=== PATIENT | female | born 2000 | race Caucasian/White ===

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

== ENCOUNTER 2020-06-08 05:28 | Day surgery (SDC) | payer OTHER ==
[2020-06-06 10:12] LABS: HEMATOCRIT 39.3 % (36.0-48.0); HEMOGLOBIN 12.8 g/dL (12-16); MCH 28.5 pg (26.0-34.0); MCHC 32.6 g/dL (31.0-37.0); MCV 87.5 fL (80.0-100.0); MEAN PLATELET VOLUME 9.7 fL (7.4-10.4); RBC 4.49 10x6/uL (4.00-5.40); RDW 12.8 % (11.5-14.5); WBC 3.9 10x3/uL (4.8-10.8)
[~2020-06-08] VITALS: Ht 165.1 cm; Wt 79.4 kg
--- NOTE | ~2020-06-08 | OP ---
PATIENT NAME: ANTONIETA SAMAYOA MEDICAL RECORD: [id number] :98 LOCATION:D.OPS ADMISSION DATE: SURGEON: ELROY MAE DPM DATE OF OPERATION: 06/08/2020 PREOPERATIVE DIAGNOSES: 1. Painful hardware, right foot. 2. HAV, right foot. 3. First met cuneiform joint instability, right foot. POSTOPERATIVE DIAGNOSES: 1. Painful hardware, right foot. 2. HAV, right foot. 3. First met cuneiform joint instability, right foot. PROCEDURES: 1. Right foot painful plate removal times 2. 2. Right Palacios bunionectomy. 2. Right first met cuneiform joint fusion. ANESTHESIA: Preoperative popliteal block per the anesthesia department as well as intraoperative general anesthesia as well as infiltration of 12 mL of Marcaine with epinephrine on the medial anterior right ankle to cover the saphenous nerve. HEMOSTASIS: Right thigh tourniquet at 300 mmHg. PREOPERATIVE DETAILS: The patient was taken to the OR and placed on the operating table in a supine position. This was followed by induction of general anesthesia, followed by infiltration of local anesthetic. The right extremity was then prepped and draped in the usual aseptic technique followed by exsanguination and inflation of tourniquet. PROCEDURE #1 and 2: Removal of painful retained hardware, right foot. A 15 blade was used to create an incision on the dorsal aspect of the right foot overlying the previous scar from the dorsal aspect of the medial cuneiform distally to the base of proximal phalanx of the hallux. The incision was deepened down through subcutaneous tissue. All vital structures were retracted in the wound. A periosteal incision was made along the dorsal aspect of the first met cuneiform joint distally to the base of the proximal phalanx of the hallux. An inverted L capsulotomy was performed at the first MPJ and the medial capsular flap was retracted and the head of first metatarsal was delivered. A rongeur was used to remove the medial eminence. Attention was directed to the first interspace where a lateral release was performed. Good clinical reduction of lateral contracture was verified. That concludes the Palacios bunionectomy and the plate removal was continued proximal, one plate was on the medial side of the first metatarsal and the other on the dorsal aspect of the medial cuneiform. The soft tissue was freed from both plates, screwdriver was used to remove the screws and the plates. PROCEDURE #3: First met cuneiform joint fusion, right foot. The first met cuneiform joint was delivered. A sagittal saw was used to resect the joint. Temporary fixation was placed. Excellent alignment was noted and a 5-hole plate with one screw crossing through the plate, across the fusion site for excellent rigid internal fixation was applied. C-arm was used to verify good alignment as OPERATIVE REPORT [id number] ANTONIETA SAMAYOA well as placement of the hardware. The wound was flushed. The periosteum was closed with 2-0 Vicryl as well as the deep tissue. The first MPJ capsule was also repaired with 2-0 Vicryl. The subcutaneous tissue was reapproximated with 4-0 Rapide and the skin was closed with 4-0 Rapide in a subcuticular technique followed by Dermabond. Adaptic, 4 x 4, and Conform were used to dress the wound followed by application of modified Staples compression dressing. Tourniquet was deflated. POSTOPERATIVE DETAILS: The patient tolerated the procedure well and left the OR with vital signs stable and vascular status at preoperative levels. The patient was transported to recovery per anesthesia in stable condition. TRANSINT:[id number] Voice Confirmation ID: [id number] DOCUMENT ID: [id number] ELROY MAE DPM CC: [id number] DICTATION DATE: 06/08/20902 ANIMAL ANATOMY TEACHER: 06/08/20 1854 [facility] 06/08/20 [facility] [address] [place] [id number]
[~2020-06-08 05:28] MED LIST: IBUPROFEN600 MG PO; PRENATAL COMPLE1 TAB PO
[2020-06-08] MEDS ORDERED: BUPROPION XL150 MG PO (05:52)
[2020-06-08 05:57] VITALS: BP 126/62; Ht 165.1 cm; Wt 79.4 kg
[2020-06-08 06:11] LABS: HCG URINE NEGATIVE (NEGATIVE)
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
== END 2020-06-08 10:45 | disposition home or self-care (01) ==
LOC: D.OPS 05:28 → D.PAN 07:00 → D.OPS 07:00
PROVIDERS: Anesthesiology; ATTEND Podiatrist
DX: M20.11 Hallux valgus (acquired), right foot (principal); M25.374 Other instability, right foot; T84.84XA Pain due to internal orthopedic prosthetic devices, implants and grafts, initial encounter